=== PATIENT | male | born 1995 | race Caucasian/White ===

== ENCOUNTER 2020-01-25 19:01 | Emergency (ER) | payer OTHER, SELFPAY ==
[2020-01-25 19:04] VITALS: BP 153/99; PULSE 93; RESP 14; TEMP 37.5; O2SAT 100
[2020-01-25] MEDS: Bupivacaine 0.5% Pres-Free 30 ML VIAL (19:19)
--- NOTE | 2020-01-25 19:19 | ED.GENADUL_ITS ---
Discharge Plan Disposition Patient Disposition: HOME Condition: Good Discharge Details Chief Complaint: Laceration Clinical Impression: Laceration of left thumb, Flexor tendon laceration, finger, open wound Primary Care Provider: Remy Silvestre ED Provider: Michele Acosta Home Meds and New Rx's Prescriptions: New cephalexin [Keflex] 500 mg capsule 500 mg PO QID 7 Days Qty: 28 RF: 0 No Action ibuprofen [Ibuprofen IB] 200 MG tablet 400 mg PO PRN PRNRF: 0 Discharge Instructions Instructions: Laceration (ED) Additional Instructions: You have lacerated your flexor tendon on your thumb. Please contact 's office tomorrow morning. Keep the area bandaged. Keep it dry. Do not directly soak the area. Watch for any signs of infection and return if any increasing redness, swelling, pain, drainage. I would expect a small amount of bleeding due to the notable tissue that was removed when you cut the finger. Please take the antibiotic as directed to prevent infection. You can take 800 mg of ibuprofen every 6 hours and 1000 mg of Tylenol every 6 hours to help with the pain. If you notice any worsening of your symptoms, or any new symptoms such as vomiting, diarrhea, fever, chills, shortness of breath, chest pain, numbness, weakness, or fainting , please return immediately to the emergency department for reevaluation. Please follow up with your primary care provider as soon as possible for reassessment and reevaluation. As always, it was a pleasure participating in your medical care today. 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 Patient states that 20 to 30 minutes prior to arrival he was working with a table saw when it sliced his left thumb. He came in immediately. He admits to tingling at the tip, and difficulty flexing his finger/thumb. He denies any other complaints at this time. Uncertain as to the last tetanus shot. No other injury. No other fletcher fying factors. Jagged laceration over the volar aspect of the thumb just distal to the DIP joint. Complete loss of flexion for the thumb on the left hand. Concerning for complete laceration of the flexor tendon. I did contact Dr. Korch, discussed the case with him. He recommends close follow-up in an outpatient setting with orthopedics. He has reviewed the images. We will start the patient on Keflex as a precaution secondary to the job site being the cause of his laceration. Will suture, plan on discharging. We will update his tetanus here 8:04 PM Patient's x-ray shows no evidence of significant abnormality. There is a minimally displaced cortical fragment at the base of the distal phalanx of the fifth finger, over this demonstrates no acuity or tenderness on exam. No evidence of radiopaque foreign body in the thumb. With the patient's lacerated flexor tendon, the area was sutured with 3 simple interrupted sutures however a majority of skin was absent secondary to the job site being the main culprit. This case was reviewed with Dr. robert again, he does recommend close follow-up at his clinic for surgical management. New bandage with nonadhesive gauze, we have given the first dose of Keflex here and will give a prescription for home use. We discussed the plan in depth with the patient. Tetanus is updated here. I have extensively reviewed the treatment plan and discharge instructions with the patient. I have addressed all patient concerns at this time. The patient was made aware of what symptoms to monitor for that would warrant a return to the emergency department. Discussed the plan with the patient, they demonstrate verbal understanding and agreement with our assessment and plan at this time. HPI General Date/Time Provider Initiated Documentation: 01/25/20 19:01 . 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 Patient states that 20 to 30 minutes prior to arrival he was working with a table saw when it sliced his left thumb. He came in immediately. He admits to tingling at the tip, and difficulty flexing his finger/thumb. He denies any other complaints at this time. Uncertain as to the last tetanus shot. No other injury. No other modifying factors. Related Data Home Medications Medication Instructions Recorded Confirmed ibuprofen [Ibuprofen Ib] 400 mg PO PRN PRN 10/14/14 01/25/20 cephalexin [Keflex] 500 mg PO QID 7 Days #28 cap 01/25/20 Previous Rx's Medication Instructions Recorded cephalexin [Keflex] 500 mg PO QID 7 Days #28 cap 01/25/20 Allergies Allergy/AdvReac Type Severity Reaction Status Date / Time No Known Allergies Allergy Unverified 01/25/20 19:15 General Stated Complaint: Laceration TOMAS: 4 Review of Systems All systems reviewed & are unremarkable except as noted in HPI and below PFSH Social History Smoking/Tobacco Use Status: Never Drug use: Never Exam Narrative Exam Narrative: 1.Const: Well-nourished, Well-developed, appearing stated age 2.Eyes: PERRL, no conjunctival injection, and symmetrical lids. 3.ENT: Atraumatic external nose and ears. Moist MM. Neck: Symmetric, trachea midline, No thyromegaly. 4.CVS: +S1/S2, No murmurs or gallops. Peripheral pulses 2+ and equal in all extremities. Brisk capillary refill in all extremities. 5.RESP: Unlabored respiratory effort. Clear to auscultation bilaterally. No w heezes rales or rhonchi 6.GI: Soft, Nontender/Nondistended, No hepatosplenomegaly. No guarding or rebound. 7.MSK: Symmetrically palpable radial and ulnar pulses. Capillary refill less than 2 seconds to all digits. Intact sensation to light touch of the radial, median and ulnar nerves demonstrated by testing in the dorsal web space of the thumb, the distal palmar aspect of the index finger, and the lateral surface of the fifth finger. 2 point discrimination intact to 5mm (up to 6mm can be normal in digits 3-5) of discrimination in the affected digit including on the thumb. 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 Thumb demonstrates normal movement for opposition abduction but complete loss of flexion capability. Jagged laceration over the volar aspect of the thumb just distal to the DIP joint. No snuffbox tenderness. 8.Skin: Warm, Dry. 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 Sensation grossly intact, no focal neurologic deficits. Please see musculoskeletal 10.Psych: (AAO) x3. Appropriate mood and affect Course Vital Signs Vital signs: Vital Signs Temperature 37.5 C 01/25/20 19:04 Pulse 93 H 01/25/20 19:04 Respiratory Rate 14 01/25/20 19:04 Blood Pressure 153/99 H 01/25/20 19:04 Pulse Oximetry 100 01/25/20 19:04 Temperature 37.5 C 01/25/20 19:04 Temperature Source Tympanic 01/25/20 19:04 Pulse 93 H 01/25/20 19:04 Respiratory Rate 14 01/25/20 19:04 Blood Pressure 153/99 H 01/25/20 19:04 Blood Pressure Position Sitting 01/25/20 19:04 Pulse Oximetry 100 01/25/20 19:04 Oxygen Delivery Method Room Air 01/25/20 19:04 Oxygen Flow Rate 0 01/25/20 19:04 Pain Level 3 01/25/20 19:14 Procedures Laceration Laceration 1: Site: hand Side (If applicable): left Size (cm): 2 Description: stellate, flap and irregular Depth: involves muscle layer Local Anesthetic: Lidocaine 1% Amount of anesthesia used (mL): 3 Pre-repair: wound explored, irrigated extensively and wound margins revised Skin layer closed with: nylon Size (cm): 4-0 Number of sutures: 3 Technique: simple, interrupted
--- NOTE | 2020-01-25 19:22 | DI.RAD_ITS ---
EXAM: XR THUMB LT CLINICAL HISTORY: table saw to thumb. TECHNIQUE: 2D digital imaging was performed. COMPARISON: None. FINDINGS: BONES: No acute fracture is present. No bony destructive lesion is seen. JOINTS: No dislocation present. SOFT TISSUE: Gauze overlies the thumb. No foreign body is seen. IMPRESSION: Soft tissue injury. No evidence of acute fracture, dislocation, or subluxation. DATA REPOSITORY: RADIATION DOSE DELIVERED:
--- NOTE | 2020-01-25 19:34 | DI.VRAD_ITS ---
PROCEDURE INFORMATION: Exam: XR Left Finger(s) Exam date and time: 01/25/2020 7:15 PM Age: 24 years old Clinical indication: Injury or trauma; Injury history: Table saw; Initial encounter; Laceration; Finger; Left; Thumb; Injury date: 01/25/20 TECHNIQUE: Imaging protocol: XR Left fingers. Views: Minimum 2 views. COMPARISON: CR LEFT LITTLE FINGER-POST REDUCT 10/14/2014 10:41 AM FINDINGS: Bones/joints: Osseous structures show no evidence of acute fracture or dislocation of the left thumb. The 2nd through 5th fingers are visualized on the AP view. Along the ulnar aspect of the base of the distal phalanx of the 5th (small) finger, there is a small linear cortical fragment that may be secondary to a fracture along the base of the distal phalanx, ulnar aspect. This fracture is of unknown acuity, possibly chronic as there is no associated soft tissue swelling. Less likely this could represent a foreign body. Soft tissues: There is a soft tissue injury to the left thumb. There is soft tissue swelling. No radiopaque foreign body is identified in the visualized soft tissues of the left thumb. IMPRESSION: 1. Soft tissue injury to the left thumb without evidence of a radiopaque foreign body. 2. No acute fracture or dislocation of the left thumb. 3. A minimally displaced small cortical fragment at the base of the distal phalanx of the 5th finger of unknown acuity. Clinical correlation as to pain and tenderness along the ulnar (medial) aspect of the distal 5th finger is suggested. Dictated and Authenticated by: Jay Cardoso MD. Ordering:ROBERT Bautista MD
[2020-01-25] MEDS: Cephalexin 500 MG CAP PO (19:39)
== END 2020-01-25 20:05 | disposition home or self-care (01) ==
PROVIDERS: Emergency Provider Student in an Organized Health Care Education/Training Program; PCP Internal Medicine
DX: S61.012A Laceration without foreign body of left thumb without damage to nail, initial encounter (principal); S66.128A Laceration of flexor muscle, fascia and tendon of other finger at wrist and hand level, initial encounter; W31.2XXA Contact with powered woodworking and forming machines, initial encounter; Y99.0 Civilian activity done for income or pay
CPT/HCPCS: 12002; 90471; 99283; 73140